=== PATIENT | male | born 1965 | race Caucasian/White ===

== ENCOUNTER 2017-05-08 12:29 | Emergency (ER) | payer OTHER ==
--- NOTE | 2017-05-08 12:36 | EDM.PDOC ---
ED HPI GENERAL MEDICAL PROBLEM - General Chief Complaint: Chest Pain Stated Complaint: CHEST PAIN Time Seen by Provider: 05/08/17 12:35 Source of Information: Reports: Patient History Limitations: Reports: No Limitations - History of Present Illness INITIAL COMMENTS - FREE TEXT/NARRATIVE: 51-year-old male presents the ED with precordial chest pain since 0800 hours this morning. States it started during a very stressful phone call during business hours this morning. States he has never really let up and is a pressure discomfort in his left precordium. Perhaps broke out in a mild sweat for a period of time no nausea or vomiting. Pain didn't travel anywhere else other than the precordial chest. He states that he took a nitroglycerin tablet hour and a half ago which would've been around 11:00 he did seem to help ease up the discomfort substantially. Her pain is down to one or 2/10. Does not feel short of breath this time. Patient does do a lot of driving and sitting with his job. No history of DVT. He reports a myocardial infarction about 3 years ago or will be 3 years at this November and he had one stent placed in sounds like the right coronary artery. He has had a stress test since that time with no problems. He is a nonsmoker. He remains on his baby aspirin in the morning and Plavix once daily. Has not missed any doses of medication. Blood pressure was very high at the office as high as 196 systolic. Diastolic was 120. It is come down nicely to 155/90 at present time after the nitroglycerin tab. He did not get a headache from the nitroglycerin. Onset: Sudden Onset Date: 05/08/17 Onset Time: 08:00 Duration: Hour(s):, Constant Location: Reports: Chest Quality: Reports: Ache, Pressure Severity: Moderate (Was up to a 6 or 7 before he took a nitroglycerin tablet now down to one or 2.) Improves with: Reports: Medication (Nitro-Tab seemed to help a good deal.) Worsens with: Reports: None Context: Reports: Other (Came on at rest after an extremely stressful business- related phone call.). Denies: Activity, Exercise, Lifting, Sick Contact, Trauma Associated Symptoms: Reports: Chest Pain. Denies: Confusion, Cough, cough w sputum, Diaphoresis, Fever/Chills, Headaches, Loss of Appetite, Malaise, Nausea/ Vomiting, Rash, Seizure, Shortness of Breath, Syncope, Weakness, Other Treatments HEAD OF MAINTENANCE: Reports: Other (see below) (Took one nitroglycerin 0.4 mg sublingually 11:00 this morning.) Chest Pain Score (Numeric/FACES): 7 - Related Data Allergies Allergy/AdvReac Type Severity Reaction Status Date / Time No Known Allergies Allergy Verified 05/08/17 12:34 Home Meds: Home Meds Aspirin [Low Dose Aspirin EC] 81 mg PO DAILY 11/11/14 [History] Clopidogrel [Plavix] 75 mg PO DAILY 11/11/14 [History] Lisinopril 10 mg PO DAILY 11/11/14 [History] Nitroglycerin [Nitrostat] 0.4 mg SL ASDIRECTED PRN 11/11/14 [History] Pantoprazole Sodium [Protonix] 20 mg PO DAILY PRN 11/11/14 [History] atorvaSTATin [Lipitor] 80 mg PO BEDTIME 06/20/15 [History] Past Medical History Cardiovascular History: Reports: High Cholesterol, Hypertension, [place], Stents ( One stent presumably in the right coronary artery.) Gastrointestinal History: Reports: GERD Other Neuro History: Bulgeing disc. - Past Surgical History Other Neurological Surgeries/Procedures: SPINAL SURGERY-FUSION Other Musculoskeletal Surgeries/Procedures:: Bulging disc lumbar-2007 Social & Family History - Tobacco Use Smoking Status *Q: Former Smoker Second Hand Smoke Exposure: No - Alcohol Use Days Per Week of Alcohol Use: 0 - Recreational Drug Use Recreational Drug Use: No - Living Situation & Occupation Living situation: Reports: Occupation: Employed (Self-employed) ED ROS GENERAL - Review of Systems Review Of Systems: See Below Constitutional: Reports: No Symptoms HEENT: Reports: No Symptoms Respiratory: Reports: No Symptoms Cardiovascular: Reports: Chest Pain, Blood Pressure Problem (See history present illness). Denies: Claudication ( chronic hypertension usually controlled on current medications), Dyspnea on Exertion, Edema, Lightheadedness , Orthopnea, Palpitations Endocrine: Reports: No Symptoms GI/Abdominal: Reports: No Symptoms, Other (GERD usually well-controlled with current medications.) : Reports: No Symptoms Musculoskeletal: Reports: No Symptoms Skin: Reports: No Symptoms Neurological: Reports: No Symptoms Psychiatric: Reports: No Symptoms Hematologic/Lymphatic: Reports: No Symptoms Immunologic: Reports: No Symptoms ED EXAM, GENERAL - Physical Exam Exam: See Below Exam Limited By: No Limitations General Appearance: Alert, WD/WN, Anxious, Mild Distress Eye Exam: Bilateral Eye: Normal Inspection Head: Atraumatic, Normocephalic Neck: Normal Inspection, Supple, Non-Tender, Full Range of Motion. No: Carotid Bruit, Lymphadenopathy (L), Lymphadenopathy (R) Respiratory/Chest: No Respiratory Distress, Lungs Clear, Normal Breath Sounds, No Accessory Muscle Use, Chest Non-Tender Cardiovascular: Normal Peripheral Pulses, Regular Rate, Rhythm, No Edema, No Gallop, No Murmur, No Rub GI/Abdominal: Normal Bowel Sounds, Soft, Non-Tender, No Organomegaly, Other ( Abdominal girth limits ability to palpate solid organs.) Extremities: Normal Inspection, Normal Range of Motion, Non-Tender, No Pedal Edema Neurological: Alert, Oriented, CN II-XII Intact, Normal Cognition, Normal Gait Psychiatric: Normal Affect, Normal Mood Skin Exam: Warm, Dry, Intact, Normal Color, No Rash EKG INTERPRETATION EKG Date: 05/08/17 Time: 12:35 Rhythm: other (Sinus bradycardia.) Rate (beats/min): 55 Jay Em: normal P-wave: present QRS: other (Decreased voltage in the precordial leads. He does have a thick chest. There is a well-defined Q-wave in lead 3.) ST-T: normal QT: prolonged Course - Vital Signs Last Recorded V/S: Last Vital Signs Temp 36.0 C 05/08/17 12:34 Pulse 55 L 05/08/17 14:19 Resp 18 05/08/17 14:19 BP 115/80 05/08/17 14:19 Pulse Ox 97 05/08/17 14:19 - Orders/Labs/Meds Orders: Active Orders 24 hr Category Date Time Status EKG Documentation Completion [RC] STAT Care 05/08/17 12:42 Active Chest 1V Frontal [CR] Stat Exams 05/08/17 12:42 Taken Labs: Laboratory Tests 05/08/17 05/08/17 05/08/17 Range/Units 12:45 12:45 12:45 WBC 5.37 (4.23-9.07) K/mm3 RBC 5.27 (4.63-6.08) M/mm3 Hgb 16.1 (13.7-17.5) gm/L Hct 45.9 (40.1-51.0) % MCV 87.1 (79.0-92.2) fl MCH 30.6 (25.7-32.2) pg MCHC 35.1 (32.2-35.5) g/dl RDW Std Deviation 40.1 (35.1-43.9) fL Plt Count 167 (163-337) K/mm3 MPV 10.1 (9.4-12.3) fl Neutrophils % (Manual) 52 (40-60) % Band Neutrophils % 0 (0-10) % Lymphocytes % (Manual) 40 (20-40) % Atypical Lymphs % 0 % Monocytes % (Manual) 6 (2-10) % Eosinophils % (Manual) 1 (0.8-7.0) % Basophils % (Manual) 1 (0.2-1.2) Platelet Estimate Adequate RBC Morph Comment Normal PT 10.8 (8.0-13.0) SECONDS INR 0.99 D-Dimer, Quantitative (0.19-0.59) mg/L Sodium 139 (136-145) mEq/L Potassium 4.1 (3.5-5.1) mEq/L Chloride 104 (98-107) mEq/L Carbon Dioxide 26 (21-32) mEq/L Anion Gap 13.1 (5-15) BUN 18 (7-18) mg/dL Creatinine 1.0 (0.7-1.3) mg/dL Est Cr Clr Drug Dosing 83.60 mL/min Estimated GFR (MDRD) > 60 (>60) mL/min BUN/Creatinine Ratio 18.0 (14-18) Glucose 95 (74-106) mg/dL Calcium 8.7 (8.5-10.1) mg/dL Magnesium 1.9 (1.8-2.4) mg/dl Total Bilirubin 1.0 (0.2-1.0) mg/dL AST 25 (15-37) U/L ALT 46 (16-63) U/L Alkaline Phosphatase 29 L (46-116) U/L CK-MB (CK-2) 1.3 (0-3.6) ng/ml Troponin I < 0.017 (0.00-0.056) ng/mL C-Reactive Protein < 0.2 (<1.0) mg/dL B-Natriuretic Peptide (0-100) pg/mL Total Protein 8.2 (6.4-8.2) g/dl Albumin 4.5 (3.4-5.0) g/dl Globulin 3.7 gm/dL Albumin/Globulin Ratio 1.2 (1-2) 05/08/17 05/08/17 Range/Units 12:45 12:45 WBC (4.23-9.07) K/mm3 RBC (4.63-6.08) M/mm3 Hgb (13.7-17.5) gm/L Hct (40.1-51.0) % MCV (79.0-92.2) fl MCH (25.7-32.2) pg MCHC (32.2-35.5) g/dl RDW Std Deviation (35.1-43.9) fL Plt Count (163-337) K/mm3 MPV (9.4-12.3) fl Neutrophils % (Manual) (40-60) % Band Neutrophils % (0-10) % Lymphocytes % (Manual) (20-40) % Atypical Lymphs % % Monocytes % (Manual) (2-10) % Eosinophils % (Manual) (0.8-7.0) % Basophils % (Manual) (0.2-1.2) Platelet Estimate RBC Morph Comment PT (8.0-13.0) SECONDS INR D-Dimer, Quantitative 0.22 (0.19-0.59) mg/L Sodium (136-145) mEq/L Potassium (3.5-5.1) mEq/L Chloride (98-107) mEq/L Carbon Dioxide (21-32) mEq/L Anion Gap (5-15) BUN (7-18) mg/dL Creatinine (0.7-1.3) mg/dL Est Cr Clr Drug Dosing mL/min Estimated GFR (MDRD) (>60) mL/min BUN/Creatinine Ratio (14-18) Glucose (74-106) mg/dL Calcium (8.5-10.1) mg/dL Magnesium (1.8-2.4) mg/dl Total Bilirubin (0.2-1.0) mg/dL AST (15-37) U/L ALT (16-63) U/L Alkaline Phosphatase (46-116) U/L CK-MB (CK-2) (0-3.6) ng/ml Troponin I (0.00-0.056) ng/mL C-Reactive Protein (<1.0) mg/dL B-Natriuretic Peptide < 15 (0-100) pg/mL Total Protein (6.4-8.2) g/dl Albumin (3.4-5.0) g/dl Globulin gm/dL Albumin/Globulin Ratio (1-2) Meds: Medications Discontinued Medications Generic Name Dose Route Start Last Admin Trade Name Rosemary PRN Reason Stop Dose Admin Aspirin 324 mg 05/08/17 12:42 05/08/17 13:04 Aspirin PO 05/08/17 12:43 324 mg ONETIME ONE Administration Nitroglycerin/Dextrose 25 mg in 250 mls @ 6 mls/hr 05/08/17 12:45 05/08/17 13 :03 Nitroglycerin 25 Mg/D5w 250 Ml IV 10 mcg/min ASDIRECTED ARTIE 6 mls/hr 10 MCG/MIN Administration Sodium Chloride 1,000 mls @ 100 mls/hr 05/08/17 12:45 05/08/17 13:03 Normal Saline IV 100 mls/hr ASDIRECTED ARTIE Administration - Radiology Interpretation Free Text/Narrative:: 51-year-old male presents to the ED with precordial chest pain that started about 0800 hours this morning. Came on during a very stressful business phone call. Patient has a history of coronary disease having had stent placement about 2 and half to 3 years ago for it sounds like right coronary occlusion in the wall OH. He continues to have left precordial chest pain improved after taking a sublingual nitroglycerin tablet at 11:00 this morning. He perhaps had mild diaphoresis at the initial onset of pain. No nausea vomiting. ECG at this time shows sinus bradycardia 55 per minute without any obvious ST segment changes to suggest ischemia. There is a diffuse early repolarization pattern. Plan he'll be treated as if he has an OH until enzymes come back. He will be given 324 mg of aspirin chewed. He does take a baby aspirin and is on Plavix daily. He reports blood pressure was through the roof initially but did improve with time and after the nitroglycerin tablet. Blood pressure at one time was 186 / 119. It is otherwise examination is normal. Plan one view chest x-ray routine labs to include cardiac markers BNP and magnesium levels. Posterior a nitro drip at 10 mcg per minute. - Re-Assessments/Exams Free Text/Narrative Re-Assessment/Exam: 05/08/17 14:04 blood pressure is down to 115/80. Heart rate is 57 in sinus. He still has a little bit of precordial chest discomfort once again on examination not able to make it worse by palpation of the chest wall. A nitro drip for the last our incisional worse no better. Labs reveal a normal white count at 5.37 with 52% neutrophils no bands hemoglobin 16.1. Hematocrit of 45.9. Coags were normal d-dimer was normal at 0.2 to cardiac markers showed a troponin of less than 0.017 CK-MB fraction was 1.3. He therefore will get him up walking and also has to make sure that he does not get any worsening of his chest pain it appears that the great deal of stress he was under today precipitated the chest pain but it's unclear why it's still present. He grades it as a 1 out of 10. 05/08/17 14:14 patient walked around the department vigorously 3 elapsed with no worsening of his chest pain. He will therefore be discharged to home with no change in medications made. He will follow-up of course continues to have left precordial chest discomfort. Departure - Departure Time of Disposition: 14:20 Disposition: Home, Self-Care 01 Condition: fair Clinical Impression: Chest pain, non-cardiac Instructions: Chest Wall Pain Referrals: Brandy Hawkins [facility] MACHINE CATCHER [Primary Care Provider] - Forms: ED Department Discharge Additional Instructions: Evaluation in the emergency room today in regards to development of left precordial chest pain about 8:00 this morning after a stressful conversation involving business. The chest pain however continued and would not let up. It did seem to improve after taking nitroglycerin tablet at 11:00 today. Pressure was notably very high for a period of time but has now settled as well. ECG done was within normal limits normal limits. Chest x-ray was normal as well. Lab tests also proved to be completely normal with notes of any blood clot in the lung or elevation of any other cardiac markers that would suggest heart attack problems. Therefore at this time no changes to are to be made her current medication or treatment plan. Continue all activity as before. Coarse return to the ED if you develop further or worsening of the pain in the left anterior chest. - My Orders Last 24 Hours: My Active Orders 05/08/17 12:42 EKG Documentation Completion [RC] STAT Chest 1V Frontal [CR] Stat - Assessment/Plan Last 24 Hours: My Active Orders 05/08/17 12:42 EKG Documentation Completion [RC] STAT Chest 1V Frontal [CR] Stat
[2017-05-08] MEDS ORDERED: Aspirin 81 MG Tab.Chew PO ONE (12:42)
[2017-05-08] MEDS ORDERED: Sodium Chloride 0.9% 1,000 ML IV SCH (12:45)
[2017-05-08] MEDS ORDERED: Nitroglycerin/D5W 25 MG/250 ML BOTTLE IV SCH (12:45)
[2017-05-08 14:21] VITALS: BP 115/80
--- NOTE | 2017-05-08 15:45 | CR ---
Chest: Frontal view of the chest was obtained. Comparison: Previous chest x-ray of 06/20/15. Heart size appears within normal limits. Tortuous thoracic aorta is seen. Minimal density within the left base compatible with slight scarring is seen. Lungs otherwise are clear. Bony structures are grossly intact. Surgical clips seen from prior cholecystectomy. Impression: 1. Incidental findings as noted above. Nothing acute seen on frontal chest x-ray. Diagnostic code #2
== END 2017-05-08 14:21 | disposition home or self-care (01) ==
LOC: JD.ED 12:29
DX: R07.89 Other chest pain (principal); I10 Essential (primary) hypertension; I25.2 Old myocardial infarction; E78.00 Pure hypercholesterolemia, unspecified; K21.9 Gastro-esophageal reflux disease without esophagitis; Z95.5 Presence of coronary angioplasty implant and graft; Z98.1 Arthrodesis status; Z79.82 Long term (current) use of aspirin; Z79.899 Other long term (current) drug therapy; Z87.891 Personal history of nicotine dependence
CPT/HCPCS: 36415; 71010; 80053; 82553; 83735; 83880; 84484; 85025; 85379; 85610; 86140; 93005; 96365; 99285; A9270; J7040; 99284

== ENCOUNTER 2017-11-13 21:47 | Emergency (ER) | payer OTHER ==
[2017-11-13] MEDS ORDERED: Nitroglycerin 0.4 MG Tab.SL SL PRN (22:06)
[2017-11-13] MEDS ORDERED: Aspirin 81 MG Tab.Chew PO ONE (22:06)
[2017-11-13] MEDS ORDERED: Sodium Chloride 0.9% 10 ML Syringe FLUSH PRN (22:06)
[2017-11-13] MEDS ORDERED: Alum Hydrox/Mag Hydrox/Simeth 30 ML, Lidocaine 2% 15 ML PO ONE ×2 (22:09)
[2017-11-13] MEDS ORDERED: Morphine 2 MG/ML Syringe IVPUSH ONE (22:09)
[2017-11-13] MEDS ORDERED: Sodium Chloride 0.9% 1,000 ML IV SCH (22:15)
--- NOTE | 2017-11-13 22:16 | EDM.PDOC ---
<Eliazar Gr O - Last Filed: 11/13/17 23:15> ED HPI GENERAL MEDICAL PROBLEM - General Chief Complaint: Chest Pain Stated Complaint: CHEST PAIN Time Seen by Provider: 11/13/17 21:51 Source of Information: Reports: Patient History Limitations: Reports: No Limitations - History of Present Illness INITIAL COMMENTS - FREE TEXT/NARRATIVE: Patient is a 52-year-old male who presents ED complaining of substernal chest discomfort that started earlier today at approximately 1300 hrs. while sitting in this office working. 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 Patient works in the oil field doing dirt work. States the pain came on abruptly substernal with mild diaphoresis present. States he did not take a nitroglycerin since the nitro bottle opened up in his pocket yesterday breaking all the tabs up. Upon arrival to the ED pain is localized with no radiation. Rated a 4 out of 10. He did take his baby aspirin earlier this morning. States he does have a history of stent placement approximately 3 years ago to the right marginal artery. Another vessel had angioplasty with no stent placement. He was just recently evaluated by his clipper counters September 2017 and taken off the Plavix that he's been taking since stent placement. Otherwise denies any additional medication and or dosage changes. With admission he denies any shortness of breath, dizziness, worsening back pain, nausea/vomiting, or any additional complaints. States he has gained approximately 15 pounds over last 3 months. Denies any increased edema to his lower extremities. Denies any PND or orthopnea. Additional past medical history: hypertension, hypercholesterolemia, irritable bowel syndrome, hiatal hernia with GERD. Current medications: nitro tab sl, lisinopril atorvastatin, pantoprazole, and ASA. SH: stent + angioplasty, cholecysectomy, and colonoscopy. Patient does not smoke or utilize any alcohol or recreational drugs. Care providers Jose David Hawkins. Chest Pain Score (Numeric/FACES): 4 - Related Data Allergies Allergy/AdvReac Type Severity Reaction Status Date / Time No Known Allergies Allergy Verified 11/13/17 21:50 Home Meds: Home Meds Aspirin [Low Dose Aspirin EC] 81 mg PO BID 11/11/14 [History] Lisinopril 10 mg PO DAILY 11/11/14 [History] Nitroglycerin [Nitrostat] 0.4 mg SL ASDIRECTED PRN 11/11/14 [History] Pantoprazole Sodium [Protonix] 40 mg PO DAILY PRN 11/11/14 [History] atorvaSTATin [Lipitor] 80 mg PO BEDTIME 06/20/15 [History] Past Medical History Cardiovascular History: Reports: High Cholesterol, Hypertension, [place], Stents Gastrointestinal History: Reports: GERD Other Neuro History: Bulgeing disc. - Past Surgical History Other Neurological Surgeries/Procedures: SPINAL SURGERY-FUSION Other Musculoskeletal Surgeries/Procedures:: Bulging disc lumbar-2007 Social & Family History - Tobacco Use Smoking Status *Q: Never Smoker Second Hand Smoke Exposure: No - Caffeine Use Caffeine Use: Reports: Coffee - Alcohol Use Days Per Week of Alcohol Use: 0 - Recreational Drug Use Recreational Drug Use: No - Living Situation & Occupation Living situation: Reports: Occupation: Employed (Self-employed) ED ROS GENERAL - Review of Systems Review Of Systems: See Below Constitutional: Reports: No Symptoms Respiratory: Denies: Shortness of Breath, Wheezing, Pleuritic Chest Pain, Cough , Sputum Cardiovascular: Reports: Chest Pain. Denies: Dyspnea on Exertion, Edema, Lightheadedness, Palpitations, Syncope GI/Abdominal: Reports: No Symptoms Musculoskeletal: Reports: Back Pain (Chronic) Neurological: Reports: No Symptoms ED EXAM, GENERAL - Physical Exam Exam: See Below Exam Limited By: No Limitations General Appearance: Alert, WD/WN, No Apparent Distress Ears: Hearing Grossly Normal Nose: Normal Inspection Throat/Mouth: Normal Voice, No Airway Compromise Neck: Normal Inspection, Supple Respiratory/Chest: No Respiratory Distress, Lungs Clear, Normal Breath Sounds, No Accessory Muscle Use, Chest Non-Tender Cardiovascular: Normal Peripheral Pulses, Regular Rate, Rhythm, No Murmur Peripheral Pulses: 3+: Radial (L), Radial (R) GI/Abdominal: Normal Bowel Sounds, Soft, Non-Tender, No Organomegaly, No Distention Extremities: Normal Inspection, Normal Range of Motion, Non-Tender, No Pedal Edema, Normal Capillary Refill Neurological: Alert, Oriented, CN II-XII Intact, Normal Cognition, No Motor/ Sensory Deficits Psychiatric: Normal Affect, Normal Mood Skin Exam: Warm, Dry, Intact, Normal Color, No Rash Course - Vital Signs Last Recorded V/S: Last Vital Signs Temp 36.0 C 11/13/17 21:50 Pulse 60 11/13/17 21:50 Resp 18 11/13/17 21:50 BP 130/95 H 11/13/17 22:24 Pulse Ox 97 11/13/17 21:50 - Orders/Labs/Meds Orders: Active Orders 24 hr Category Date Time Status Cardiac Monitoring [RC] . DIRECTED Care 11/13/17 22:06 Active EKG Documentation Completion [RC] ASDIRECTED Care 11/14/17 00:59 Active EKG Documentation Completion [RC] ASDIRECTED Care 11/14/17 00:59 Active Peripheral IV Care [RC] . DIRECTED Care 11/13/17 22:08 Active Nothing per Oral Now Diet [DIET] Diet 11/13/17 Lunch Active Chest 1V Frontal [CR] Stat Exams 11/13/17 22:07 Taken Nitroglycerin [Nitrostat] Med 11/13/17 22:06 Active 0.4 mg SL Q5M PRN Sodium Chloride 0.9% [Normal Saline] 1,000 ml Med 11/13/17 22:15 Active IV ASDIRECTED Sodium Chloride 0.9% [Saline Flush] Med 11/13/17 22:06 Active 10 ml FLUSH ASDIRECTED PRN Peripheral IV Insertion Adult [OM.PC] Stat Oth 11/13/17 22:06 Ordered EKG 12 Lead [EK] Stat Ther 11/14/17 00:58 Ordered EKG 12 Lead [EK] Stat Ther 11/14/17 00:59 Ordered Medication Orders Sodium Chloride (Normal Saline) 1,000 mls @ 125 mls/hr IV ASDIRECTED ARTIE Last Admin: 11/13/17 22:19 Dose: 125 mls/hr Nitroglycerin (Nitrostat) 0.4 mg SL Q5M PRN PRN Reason: Chest Pain Stop: 11/14/17 22:06 Last Admin: 11/13/17 22:24 Dose: 0.4 mg Sodium Chloride (Saline Flush) 10 ml FLUSH ASDIRECTED PRN PRN Reason: Keep Vein Open Last Admin: 11/13/17 22:23 Dose: 10 ml Labs: Laboratory Tests 11/13/17 11/13/17 11/13/17 Range/Units 21:51 21:51 21:51 WBC 6.94 (4.23-9.07) K/mm3 RBC 5.46 (4.63-6.08) M/mm3 Hgb 16.6 (13.7-17.5) gm/L Hct 47.2 (40.1-51.0) % MCV 86.4 (79.0-92.2) fl MCH 30.4 (25.7-32.2) pg MCHC 35.2 (32.2-35.5) g/dl RDW Std Deviation 39.5 (35.1-43.9) fL Plt Count 166 (163-337) K/mm3 MPV 9.9 (9.4-12.3) fl Neut % (Auto) 59.2 (34.0-67.9) % Lymph % (Auto) 28.8 (21.8-53.1) % [place] % (Auto) 10.2 (5.3-12.2) % Eos % (Auto) 1.4 (0.8-7.0) Baso % (Auto) 0.3 (0.1-1.2) % Neut # (Auto) 4.10 (1.78-5.38) K/mm3 Lymph # (Auto) 2.00 (1.32-3.57) K/mm3 [place] # (Auto) 0.71 (0.30-0.82) K/mm3 Eos # (Auto) 0.10 (0.04-0.54) K/mm3 Baso # (Auto) 0.02 (0.01-0.08) K/mm3 PT 10.7 (8.0-13.0) SECONDS INR 0.98 APTT 26 (22-36) SECONDS D-Dimer, Quantitative (0.19-0.59) mg/L Sodium 139 (136-145) mEq/L Potassium 3.9 (3.5-5.1) mEq/L Chloride 103 (98-107) mEq/L Carbon Dioxide 28 (21-32) mEq/L Anion Gap 11.9 (5-15) BUN 22 H (7-18) mg/dL Creatinine 1.0 (0.7-1.3) mg/dL Est Cr Clr Drug Dosing 71.53 mL/min Estimated GFR (MDRD) > 60 (>60) mL/min BUN/Creatinine Ratio 22.0 H (14-18) Glucose 92 (74-106) mg/dL Calcium 9.4 (8.5-10.1) mg/dL Total Bilirubin 0.8 (0.2-1.0) mg/dL AST 30 (15-37) U/L ALT 49 (16-63) U/L Alkaline Phosphatase 54 (46-116) U/L Troponin I < 0.017 (0.00-0.056) ng/mL C-Reactive Protein < 0.2 (<1.0) mg/dL NT-Pro-B Natriuret Pep 11 (0-125) pg/mL Total Protein 8.2 (6.4-8.2) g/dl Albumin 4.6 (3.4-5.0) g/dl Globulin 3.6 gm/dL Albumin/Globulin Ratio 1.3 (1-2) 11/13/17 11/14/17 Range/Units 21:51 01:02 WBC (4.23-9.07) K/mm3 RBC (4.63-6.08) M/mm3 Hgb (13.7-17.5) gm/L Hct (40.1-51.0) % MCV (79.0-92.2) fl MCH (25.7-32.2) pg MCHC (32.2-35.5) g/dl RDW Std Deviation (35.1-43.9) fL Plt Count (163-337) K/mm3 MPV (9.4-12.3) fl Neut % (Auto) (34.0-67.9) % Lymph % (Auto) (21.8-53.1) % [place] % (Auto) (5.3-12.2) % Eos % (Auto) (0.8-7.0) Baso % (Auto) (0.1-1.2) % Neut # (Auto) (1.78-5.38) K/mm3 Lymph # (Auto) (1.32-3.57) K/mm3 [place] # (Auto) (0.30-0.82) K/mm3 Eos # (Auto) (0.04-0.54) K/mm3 Baso # (Auto) (0.01-0.08) K/mm3 PT (8.0-13.0) SECONDS INR APTT (22-36) SECONDS D-Dimer, Quantitative < 0.19 L (0.19-0.59) mg/L Sodium (136-145) mEq/L Potassium (3.5-5.1) mEq/L Chloride (98-107) mEq/L Carbon Dioxide (21-32) mEq/L Anion Gap (5-15) BUN (7-18) mg/dL Creatinine (0.7-1.3) mg/dL Est Cr Clr Drug Dosing mL/min Estimated GFR (MDRD) (>60) mL/min BUN/Creatinine Ratio (14-18) Glucose (74-106) mg/dL Calcium (8.5-10.1) mg/dL Total Bilirubin (0.2-1.0) mg/dL AST (15-37) U/L ALT (16-63) U/L Alkaline Phosphatase (46-116) U/L Troponin I < 0.017 (0.00-0.056) ng/mL C-Reactive Protein (<1.0) mg/dL NT-Pro-B Natriuret Pep (0-125) pg/mL Total Protein (6.4-8.2) g/dl Albumin (3.4-5.0) g/dl Globulin gm/dL Albumin/Globulin Ratio (1-2) Meds: Medications Generic Name Dose Route Start Last Admin Trade Name Freq PRN Reason Stop Dose Admin Sodium Chloride 1,000 mls @ 125 mls/hr 11/13/17 22:15 11/13/17 22:19 Normal Saline IV 125 mls/hr ASDIRECTED ARTIE Administration Nitroglycerin 0.4 mg 11/13/17 22:06 11/13/17 22:24 Nitrostat SL 11/14/17 22:06 0.4 mg Q5M PRN Administration Chest Pain Sodium Chloride 10 ml 11/13/17 22:06 11/13/17 22:23 Saline Flush FLUSH 10 ml ASDIRECTED PRN Administration Keep Vein Open Discontinued Medications Generic Name Dose Route Start Last Admin Trade Name Freq PRN Reason Stop Dose Admin Aspirin 324 mg 11/13/17 22:06 11/13/17 22:20 Aspirin PO 11/13/17 22:07 324 mg ONETIME ONE Administration Al Hydroxide/Mg Hydroxide 30 0 ml 11/13/17 22:09 11/13/17 22:21 ml/ Lidocaine HCl 15 ml PO 11/13/17 22:10 45 ml ONETIME ONE Administration Morphine Sulfate 2 mg 11/13/17 22:09 11/13/17 22:23 Morphine IVPUSH 11/13/17 22:10 2 mg ONETIME ONE Administration - Re-Assessments/Exams Free Text/Narrative Re-Assessment/Exam: IV established with normal saline 125 mL per hour, aspirin 324 mg by mouth, and nitroglycerin 0.4 mg sublingual every 5 minutes when necessary chest pain. Morphine 2mg IVP and GI cocktail. Initial labs and studies include CBC, chem 14, CRP, and coag studies, Ddimer, troponin, proBNP, and chest x-ray one view. EKG was obtained revealing sinus rhythm at a rate of 61 with borderline left axis deviation with no acute ST changes noted. 11/13/17 22:37 After administration of the above medications patients pain is a 2/10, trending downward. 11/13/17 22:[address] Sparkle Saab with no acute findings noted. Final interpretation is pending. Labs reviewed: CBC and chemistry panel are essentially normal. D-dimer less than 0.19. Troponin less than 0.017. CRP 0.2. 1105 reassessment, patient's pain is currently 1 out of 10. Vital signs are stable. I have ordered a second troponin to be obtained 3 hours from previous blood draw. 2nd EKG will be obtained at this time. Departure - Departure Disposition: Home, Self-Care 01 Clinical Impression: Chest pain Qualifiers: Chest pain type: unspecified Qualified Code(s): R07.9 - Chest pain, unspecified Instructions: Nonspecific Chest Pain, [id number] Referrals: Brandy Hawkins, [employer] [Primary Care Provider] - Forms: ED Department Discharge Additional Instructions: 1. Follow up with your primary doctor as soon as possible for further care 2. Return to the ED if you have worsening chest pain, shortness of breath, or any other concerning symptoms <Crystal Saab - Last Filed: 11/14/17 01:53> Course - Re-Assessments/Exams Free Text/Narrative Re-Assessment/Exam: 11/14/17 01:41 Repeat troponin negative. Feeling well, ready to go home. Discussed return precautions. 11/14/17 01:53 Departure - Departure Time of Disposition: 01:41
[2017-11-13 22:26] VITALS: BP 130/95
--- NOTE | 2017-11-15 08:43 | CR ---
Chest: Portable view of the chest was obtained. Comparison: Prior chest x-ray of 05/08/17. Heart size is normal. Tortuous thoracic aorta is seen. Lungs are clear. Bony structures are grossly intact. Impression: 1. Nothing acute is identified on portable chest x-ray. Diagnostic code #1 MTDD
== END 2017-11-14 01:53 | disposition home or self-care (01) ==
LOC: JD.ED 21:47
DX: R07.2 Precordial pain (principal); I10 Essential (primary) hypertension; E78.00 Pure hypercholesterolemia, unspecified; Z79.82 Long term (current) use of aspirin; Z79.899 Other long term (current) drug therapy
CPT/HCPCS: 36415; 71010; 80053; 83880; 84484; 85025; 85379; 85610; 85730; 86140; 93005; 96361; 96374; 99285; A9270; J2270; J7040; J7050; 93010; 99284-25

== ENCOUNTER 2021-11-29 19:52 | Emergency (ER) | payer OTHER ==
[2021-11-29 20:05] VITALS: PULSE 64
[2021-11-29] MEDS ORDERED: Aspirin 81 MG Tab.Chew PO ONE (20:12)
[2021-11-29] MEDS ORDERED: Sodium Chloride 0.9% 10 ML Syringe FLUSH PRN (20:12)
[2021-11-29] MEDS ORDERED: Nitroglycerin 0.4 MG Tab.SL SL ONE (20:29)
--- NOTE | 2021-11-29 20:29 | EDM.PDOC ---
ED HPI GENERAL MEDICAL PROBLEM - General Chief Complaint: Cardiovascular Problem Stated Complaint: HIGH BP Time Seen by Provider: 11/29/21 20:20 - History of Present Illness INITIAL COMMENTS - FREE TEXT/NARRATIVE: 56-year-old male presents the emergency room with elevated blood pressure and some chest discomfort. He is notices blood pressures in the 160s 170s at times. Today's had a little bit of chest discomfort that comes and goes. He has not used nitro for quite some time but did filler picker some today but did not use it. Patient has a history of having stents placed about 5 years ago. He has not followed up with cardi ology in about 3 years. Patient has some abdominal bloating and is not sure if this is associated with his chest discomfort. At present he has no chest discomfort but does have little bit of abdominal bloating. He has not noticed any nausea vomiting diaphoresis or shortness of breath. His abnormal blood pressure readings has noticed have been at early hours in the morning around 4 or 5 AM. Mid-Anterior Chest Pain Score (Numeric/FACES): 5 - Related Data Allergies Allergy/AdvReac Type Severity Reaction Status Date / Time No Known Allergies Allergy Verified 11/29/21 19:58 Home Meds: Home Meds Aspirin [Low Dose Aspirin EC] 81 mg PO BID 11/11/14 [History] Nitroglycerin [Nitrostat] 0.4 mg SL ASDIRECTED PRN 11/11/14 [History] Pantoprazole Sodium [Protonix] 40 mg PO DAILY PRN 11/11/14 [History] atorvaSTATin [Lipitor] 80 mg PO BEDTIME 06/20/15 [History] Lisinopril/Hydrochlorothiazide [Lisinopril-HCTZ 10-12.5 MG] 1 tab PO DAILY 11/29/21 [History] Past Medical History HEENT History: Reports: Glaucoma Cardiovascular History: Reports: High Cholesterol, Hypertension, [place], Stents Gastrointestinal History: Reports: GERD, P[place] Musculoskeletal History: Reports: Fracture Other Neuro History: Bulgeing disc. Psychiatric History: Reports: Depression - Past Surgical History Cardiovascular Surgical History: Reports: Coronary Artery Stent GI Surgical History: Reports: Cholecystectomy Other Neurological Surgeries/Procedures: SPINAL SURGERY--shaved off disc. Other Musculoskeletal Surgeries/Procedures:: Bulging disc lumbar-2007 Social & Family History - Tobacco Use Tobacco Use Status *Q: Never Tobacco User Second Hand Smoke Exposure: No - Caffeine Use Caffeine Use: Reports: Coffee - Recreational Drug Use Recreational Drug Use: No - Living Situation & Occupation Living situation: Reports: Occupation: Employed (Self-employed) ED ROS GENERAL - Review of Systems Review Of Systems: See Below Constitutional: Reports: No Symptoms HEENT: Reports: No Symptoms Respiratory: Reports: No Symptoms Cardiovascular: Reports: Chest Pain, Blood Pressure Problem. Denies: Edema Endocrine: Reports: No Symptoms GI/Abdominal: Reports: No Symptoms : Reports: No Symptoms Musculoskeletal: Reports: No Symptoms Skin: Reports: No Symptoms Neurological: Reports: No Symptoms ED EXAM, GENERAL - Physical Exam Exam: See Below Exam Limited By: No Limitations General Appearance: Alert, No Apparent Distress, Obese Head: Atraumatic, Normocephalic Neck: Normal Inspection, Supple, Non-Tender, Full Range of Motion Respiratory/Chest: No Respiratory Distress, Lungs Clear, Normal Breath Sounds, No Accessory Muscle Use, Chest Non-Tender Cardiovascular: Normal Peripheral Pulses, Regular Rate, Rhythm, No Edema, No Gallop, No JVD, No Murmur, No Rub GI/Abdominal: Normal Bowel Sounds, Soft, Non-Tender Back Exam: Normal Inspection Extremities: Normal Inspection, No Pedal Edema Neurological: Alert, Oriented, Normal Cognition Skin Exam: Warm, Dry, Intact #1 Interpretation EKG Date: 11/29/21 Rhythm: NSR Rate (Beats/Min): 59 [place]: Normal P-Wave: Present QRS: Normal ST-T: Normal QT: Normal Comparison: No Change (Again change from October 15, 2014 or June 20, 2015) EKG Interpretation Comments: Normal EKG Course - Vital Signs Last Recorded V/S: Last Vital Signs Temp 36.7 C 11/29/21 19:55 Pulse 64 11/29/21 19:55 Resp 18 11/29/21 19:55 BP 129/85 11/29/21 20:50 Pulse Ox 100 11/29/21 19:55 - Orders/Labs/Meds Orders: Active Orders 24 hr Category Date Time Status Cardiac Monitoring [RC] . DIRECTED Care 11/29/21 20:14 Active Communication Order [RC] ASDIRECTED Care 11/29/21 20:14 Active Communication Order [RC] ASDIRECTED Care 11/29/21 20:14 Active Oxygen Therapy [RC] ASDIRECTED Care 11/29/21 20:14 Active Peripheral IV Care [RC] . DIRECTED Care 11/29/21 20:14 Active Vaccine to be Administered/Admin Charge [RC] ASDIRECTED Care 11/29/21 20:12 Active Chest 1V Frontal [CR] Stat Exams 11/29/21 20:14 Taken Sodium Chloride 0.9% [Normal Saline] 1,000 ml Med 11/29/21 20:30 Active IV ASDIRECTED Sodium Chloride 0.9% [Saline Flush] Med 11/29/21 20:12 Active 10 ml FLUSH ASDIRECTED PRN Peripheral IV Insertion Adult [OM.PC] Stat Oth 11/29/21 20:14 Ordered EKG 12 Lead [EK] Stat Ther 11/29/21 20:31 Ordered Medication Orders Sodium Chloride (Normal Saline) 1,000 mls @ 50 mls/hr IV ASDIRECTED ARTIE Last Admin: 11/29/21 20:54 Dose: 50 mls/hr Documented by: ZIGGY Sodium Chloride (Sodium Chloride 0.9% 10 Ml Syringe) 10 ml FLUSH ASDIRECTED PRN PRN Reason: Keep Vein Open Labs: Laboratory Tests 11/29/21 11/29/21 11/29/21 Range/Units 20:20 20:20 20:20 WBC 6.07 (4.23-9.07) K/mm3 RBC 5.18 (4.63-6.08) M/mm3 Hgb 15.8 (13.7-17.5) gm/dl Hct 45.3 (40.1-51.0) % MCV 87.5 (79.0-92.2) fl MCH 30.5 (25.7-32.2) pg MCHC 34.9 (32.2-35.5) g/dl RDW Std Deviation 40.9 (35.1-43.9) fL Plt Count 155 L (163-337) K/mm3 MPV 9.7 (9.4-12.3) fl Neut % (Auto) 59.9 (34.0-67.9) % Lymph % (Auto) 27.5 (21.8-53.1) % [place] % (Auto) 10.9 (5.3-12.2) % Eos % (Auto) 1.2 (0.8-7.0) Baso % (Auto) 0.2 (0.1-1.2) % Neut # (Auto) 3.64 (1.78-5.38) K/mm3 Lymph # (Auto) 1.67 (1.32-3.57) K/mm3 [place] # (Auto) 0.66 (0.30-0.82) K/mm3 Eos # (Auto) 0.07 (0.04-0.54) K/mm3 Baso # (Auto) 0.01 (0.01-0.08) K/mm3 PT 11.1 (9.7-12.0) SECONDS INR 1.00 D-Dimer, Quantitative < 0.19 L (0.19-0.50) mg/L Sodium 140 (136-145) mEq/L Potassium 3.6 (3.5-5.1) mEq/L Chloride 104 (98-107) mEq/L Carbon Dioxide 26 (21-32) mEq/L Anion Gap 13.6 (5-15) BUN 16 (7-18) mg/dL Creatinine 0.9 (0.7-1.3) mg/dL Est Cr Clr Drug Dosing 84.67 mL/min Estimated GFR (MDRD) > 60 (>60) mL/min BUN/Creatinine Ratio 17.8 (14-18) Glucose 114 H (70-99) mg/dL Calcium 8.5 (8.5-10.1) mg/dL Magnesium 1.8 (1.8-2.4) mg/dL Total Bilirubin 1.1 H (0.2-1.0) mg/dL AST 26 (15-37) U/L ALT 47 (16-63) U/L Alkaline Phosphatase 53 (46-116) U/L Troponin I < 0.017 (0.00-0.056) ng/mL Total Protein 7.8 (6.4-8.2) g/dl Albumin 4.3 (3.4-5.0) g/dl Globulin 3.5 gm/dL Albumin/Globulin Ratio 1.2 (1-2) 11/29/21 Range/Units 22:25 WBC (4.23-9.07) K/mm3 RBC (4.63-6.08) M/mm3 Hgb (13.7-17.5) gm/dl Hct (40.1-51.0) % MCV (79.0-92.2) fl MCH (25.7-32.2) pg MCHC (32.2-35.5) g/dl RDW Std Deviation (35.1-43.9) fL Plt Count (163-337) K/mm3 MPV (9.4-12.3) fl Neut % (Auto) (34.0-67.9) % Lymph % (Auto) (21.8-53.1) % [place] % (Auto) (5.3-12.2) % Eos % (Auto) (0.8-7.0) Baso % (Auto) (0.1-1.2) % Neut # (Auto) (1.78-5.38) K/mm3 Lymph # (Auto) (1.32-3.57) K/mm3 [place] # (Auto) (0.30-0.82) K/mm3 Eos # (Auto) (0.04-0.54) K/mm3 Baso # (Auto) (0.01-0.08) K/mm3 PT (9.7-12.0) SECONDS INR D-Dimer, Quantitative (0.19-0.50) mg/L Sodium (136-145) mEq/L Potassium (3.5-5.1) mEq/L Chloride (98-107) mEq/L Carbon Dioxide (21-32) mEq/L Anion Gap (5-15) BUN (7-18) mg/dL Creatinine (0.7-1.3) mg/dL Est Cr Clr Drug Dosing mL/min Estimated GFR (MDRD) (>60) mL/min BUN/Creatinine Ratio (14-18) Glucose (70-99) mg/dL Calcium (8.5-10.1) mg/dL Magnesium (1.8-2.4) mg/dL Total Bilirubin (0.2-1.0) mg/dL AST (15-37) U/L ALT (16-63) U/L Alkaline Phosphatase (46-116) U/L Troponin I < 0.017 (0.00-0.056) ng/mL Total Protein (6.4-8.2) g/dl Albumin (3.4-5.0) g/dl Globulin gm/dL Albumin/Globulin Ratio (1-2) Meds: Medications Generic Name Dose Route Start Last Admin Trade Name Freq PRN Reason Stop Dose Admin Sodium Chloride 1,000 mls @ 50 mls/hr 11/29/21 20:30 11/29/21 20:54 Normal Saline IV 50 mls/hr ASDIRECTED ARTIE Administration Sodium Chloride 10 ml 11/29/21 20:12 Sodium Chloride 0.9% 10 Ml Syringe FLUSH ASDIRECTED PRN Keep Vein Open Discontinued Medications Generic Name Dose Route Start Last Admin Trade Name Freq PRN Reason Stop Dose Admin Aspirin 324 mg 11/29/21 20:12 11/29/21 20:28 Aspirin 81 Mg Tab.Chew PO 11/29/21 20:13 324 mg ONETIME ONE Administration Influenza Virus Vaccine 60 mcg 11/29/21 21:30 11/29/21 21:50 Flu Vacc [id number] 36mos Up/Pf 60 Mcg/0.5 Ml Syringe IM 11/29/21 21:31 60 mcg .ONCE ONE Administration Nitroglycerin 0.4 mg 11/29/21 20:29 11/29/21 20:50 Nitroglycerin 0.4 Mg Tab.Sl SL 11/29/21 20:30 0.4 mg ONETIME ONE Administration - Re-Assessments/Exams Free Text/Narrative Re-Assessment/Exam: 11/29/21 23:21 Patient's initial work-up and EKG is nondiagnostic troponin is negative I watched him to a reasonable time checked a second troponin which came back negative. Patient's course and work-up admit discussed with Dr. Wilkins, on-call piper installer at [facility] who agrees with disposition patient be discharged using his sublingual nitro on a as needed basis and the patient will call cardiology office to schedule an appointment this week. Departure - Departure Time of Disposition: 23:22 Disposition: Home, Self-Care 01 Clinical Impression: Chest pain Qualifiers: Chest pain type: unspecified Qualified Code(s): R07.9 - Chest pain, unspecified Referrals: Narinder Saenz MD [Primary Care Provider] - Forms: ED Department Discharge Additional Instructions: Return to the emergency room with any questions problems or worsening symptoms. Call your cardiology office in the morning to schedule a appointment preferably for this week. Use your sublingual nitro as needed. If you need to take 3 doses to help with 1 bout of chest pain you should immediately return to the chest emergency room. Continue your medications that you are taking. You could consider splitting up the lisinopril and hydrochlorothiazide taking the hydrochlorothiazide in the morning and lisinopril at night to help with these reported elevated blood pressures early in the morning. Continue your other medications as before. You may also follow-up with your regular physician as needed. He would be a good to discuss your blood pressure management with. Sepsis Event Note (ED) - Evaluation Sepsis Screening Result: No Definite Risk - Focused Exam Vital Signs: Vital Signs Temp Pulse Resp BP BP Pulse Ox 11/29/21 20:50 129/85 11/29/21 19:55 36.7 C 64 18 153/97 H 100 - My Orders Last 24 Hours: My Active Orders 11/29/21 20:12 Vaccine to be Administered/Admin Charge [RC] ASDIRECTED Sodium Chloride 0.9% [Saline Flush] 10 ml FLUSH ASDIRECTED PRN 11/29/21 20:14 Cardiac Monitoring [RC] . DIRECTED Communication Order [RC] ASDIRECTED Communication Order [RC] ASDIRECTED Oxygen Therapy [RC] ASDIRECTED Peripheral IV Care [RC] . DIRECTED Chest 1V Frontal [CR] Stat Peripheral IV Insertion Adult [OM.PC] Stat 11/29/21 20:30 Sodium Chloride 0.9% [Normal Saline] 1,000 ml IV ASDIRECTED 11/29/21 20:31 EKG 12 Lead [EK] Stat - Assessment/Plan Last 24 Hours: My Active Orders 11/29/21 20:12 Vaccine to be Administered/Admin Charge [RC] ASDIRECTED Sodium Chloride 0.9% [Saline Flush] 10 ml FLUSH ASDIRECTED PRN 11/29/21 20:14 Cardiac Monitoring [RC] . DIRECTED Communication Order [RC] ASDIRECTED Communication Order [RC] ASDIRECTED Oxygen Therapy [RC] ASDIRECTED Peripheral IV Care [RC] . DIRECTED Chest 1V Frontal [CR] Stat Peripheral IV Insertion Adult [OM.PC] Stat 11/29/21 20:30 Sodium Chloride 0.9% [Normal Saline] 1,000 ml IV ASDIRECTED 11/29/21 20:31 EKG 12 Lead [EK] Stat
[2021-11-29] MEDS ORDERED: Sodium Chloride 0.9% 1,000 ML IV SCH (20:30)
[2021-11-29 20:50] VITALS: BP 129/85
[2021-11-29] MEDS ORDERED: FLU Vacc QS2021-22 36MOS UP/PF 60 MCG/0.5 ML Syringe IM ONE (21:30)
--- NOTE | 2021-11-30 10:09 | CR ---
EXAM: XR CHEST 1 VIEW LOCATION: [facility] DATE/TIME: 11/29/2021 8:51 PM INDICATION: Chest pain. COMPARISON: None. FINDINGS: The heart size is normal. There are few bands of scar or atelectasis in the lower lungs. The lungs are otherwise clear. No pneumothorax. IMPRESSION: Mild bilateral atelectasis or scarring. SIGNED BY: Reid Arciniega MD 11/29/2021 10:01 PM A[facility]IL
== END 2021-11-29 23:43 | disposition home or self-care (01) ==
LOC: JD.ED 19:52
DX: R07.89 Other chest pain (principal); E78.00 Pure hypercholesterolemia, unspecified; I10 Essential (primary) hypertension; I25.2 Old myocardial infarction; K21.9 Gastro-esophageal reflux disease without esophagitis; Z79.82 Long term (current) use of aspirin; Z79.899 Other long term (current) drug therapy
CPT/HCPCS: 36415; 71045; 80053; 83735; 84484; 85025; 85379; 85610; 90471; 90686; 93005; 99285; A9270; J7030; G0008

== ENCOUNTER 2022-05-31 11:03 | Day surgery (SDC) | payer OTHER ==
[2022-05-31] MEDS ORDERED: Lidocaine 1% 6 ML ONE (11:06)
[2022-05-31] MEDS ORDERED: Propofol 200 MG/20 ML SDV ONE ×2 (11:06→12:26)
[2022-05-31] MEDS ORDERED: Lactated Ringers 1,000 ML IV ONE (11:24)
[2022-05-31] MEDS ORDERED: Lidocaine 1%/Sod Bicarbonate in NS 8.4% 1 ML Syringe IDERM ONE (11:24)
[2022-05-31] MEDS ORDERED: Sodium Chloride 0.9% 10 ML Syringe FLUSH PRN (11:25)
[2022-05-31 12:39] VITALS: PULSE 60
[2022-05-31 13:11] VITALS: BP 123/83
[2022-05-31] MEDS ORDERED: Sodium Chloride 0.9% 10 ML Syringe FLUSH SCH (21:00)
== END 2022-05-31 13:05 | disposition home or self-care (01) ==
LOC: JD.SDS 11:03
PROVIDERS: ATTEND Surgery
DX: K31.7 Polyp of stomach and duodenum (principal); K21.9 Gastro-esophageal reflux disease without esophagitis; K44.9 Diaphragmatic hernia without obstruction or gangrene; I10 Essential (primary) hypertension; K29.70 Gastritis, unspecified, without bleeding; K22.70 Barrett's esophagus without dysplasia; F41.1 Generalized anxiety disorder; I25.10 Atherosclerotic heart disease of native coronary artery without angina pectoris; E78.00 Pure hypercholesterolemia, unspecified; G47.30 Sleep apnea, unspecified; Z87.11 Personal history of peptic ulcer disease; Z79.02 Long term (current) use of antithrombotics/antiplatelets; Z79.899 Other long term (current) drug therapy; Z79.83 Long term (current) use of bisphosphonates; Z90.49 Acquired absence of other specified parts of digestive tract; Z98.890 Other specified postprocedural states; Z78.9 Other specified health status; Z86.16 Personal history of COVID-19; Z86.74 Personal history of sudden cardiac arrest; Z87.898 Personal history of other specified conditions
CPT/HCPCS: 43239; J2704; J7120

== ENCOUNTER 2024-02-16 14:29 | Emergency (ER) | payer OTHER ==
[2024-02-16] MEDS: Sodium Chloride 0.9% 10 ML Syringe FLUSH PRN (16:07)
[2024-02-16] MEDS: Ketorolac 60 MG/2 ML SDV IM ONE (16:13)
[2024-02-16 16:18] LABS: BASOPHILS PERCENT AUTO 0.4 % (0.0-1.0); EOSINOPHILS ABSOLUTE AUTO 0.1 K/mm3 (0.0-0.4); EOSINOPHILS PERCENT AUTO 0.9 % (0.0-6.0); HEMATOCRIT 42.3 % (42.0-52.0); HEMOGLOBIN 14.8 gm/dl (14.0-18.0); IMMATURE GRAN ABSOLUTE AUTO 0.02 K/mm3 (0.00-0.05); IMMATURE GRAN PERCENT AUTO 0.4 % (0.0-0.4); LYMPHOCYTES ABSOLUTE AUTO 1.2 K/mm3 (1.0-4.8); LYMPHOCYTES PERCENT AUTO 21.6 % (24.0-44.0); MEAN CORPUSCULAR HEMOGLOBIN 30.9 pg (28.0-32.0); MEAN CORPUSCULAR VOLUME 88.3 fl (83.0-99.0); MEAN PLATELET VOLUME 9.4 fl (9.4-12.4); MONOCYTES ABSOLUTE AUTO 0.5 K/mm3 (0.0-0.8); MONOCYTES PERCENT AUTO 9.1 % (0.0-8.0); NEUTROPHILS ABSOLUTE AUTO 3.6 K/mm3 (1.8-7.7); NEUTROPHILS PERCENT AUTO 67.6 % (41.0-71.0); PLATELET COUNT,PLT 150 K/mm3 (150-400); RED BLOOD CELL COUNT 4.79 M/mm3 (4.52-5.90); WHITE BLOOD CELL COUNT,WBC 5.37 K/mm3 (3.9-11.3)
[2024-02-16 17:04] LABS: A/G RATIO 1.1 (1-2); ANION GAP 11.8 (5-15); BILIRUBIN TOTAL 0.5 mg/dL (0.2-1.0); CALCIUM 8.6 mg/dL (8.5-10.1); EST CRCL DRUG DOSING (CG) 74.36 mL/min; POTASSIUM,K 3.8 mEq/L (3.5-5.1); PROTEIN TOTAL,TP 7.5 g/dl (6.4-8.2)
[2024-02-16 17:44] VITALS: BP 130/79; PULSE 61
== END 2024-02-16 17:56 | disposition home or self-care (01) ==
LOC: JD.ED 14:29
DX: R07.89 Other chest pain (principal); M54.50 Low back pain, unspecified; Z79.82 Long term (current) use of aspirin; Z79.899 Other long term (current) drug therapy
CPT/HCPCS: 36415; 71046; 71046-26; 80053; 84484; 85025; 93005; 96372; 99285; J1885; J3490

== ENCOUNTER 2024-12-03 17:48 | Emergency (ER) | payer OTHER ==
[2024-12-03] MEDS ORDERED: Sodium Chloride 0.9% 10 ML Syringe FLUSH PRN (20:11)
[2024-12-03] MEDS: Sodium Chloride 0.9% 1,000 ML IV ONE (20:30)
[2024-12-03] MEDS: Ketorolac 30 MG/ML SDV IVPUSH ONE (20:33)
[2024-12-03] MEDS: Acetaminophen 325 MG Tab PO ONE (20:35)
[2024-12-03 20:41] LABS: BASOPHILS PERCENT AUTO 0.2 % (0.0-1.0); EOSINOPHILS PERCENT AUTO 0.2 % (0.0-6.0); HEMOGLOBIN 16.4 gm/dl (14.0-18.0); IMMATURE GRAN ABSOLUTE AUTO 0.01 K/mm3 (0.00-0.05); IMMATURE GRAN PERCENT AUTO 0.2 % (0.0-0.4); LYMPHOCYTES ABSOLUTE AUTO 0.4 K/mm3 (1.0-4.8); LYMPHOCYTES PERCENT AUTO 6.7 % (24.0-44.0); MEAN CORPUSCULAR HEMOGLOBIN 30.9 pg (28.0-32.0); MEAN CORPUSCULAR HGB CONC 34.9 g/dl (32.0-36.0); MEAN CORPUSCULAR VOLUME 88.7 fl (83.0-99.0); MEAN PLATELET VOLUME 9.6 fl (9.4-12.4); MONOCYTES ABSOLUTE AUTO 0.9 K/mm3 (0.0-0.8); MONOCYTES PERCENT AUTO 15.3 % (0.0-8.0); NEUTROPHILS ABSOLUTE AUTO 4.4 K/mm3 (1.8-7.7); NEUTROPHILS PERCENT AUTO 77.4 % (41.0-71.0); PLATELET COUNT,PLT 126 K/mm3 (150-400); WHITE BLOOD CELL COUNT,WBC 5.67 K/mm3 (3.9-11.3)
[2024-12-03 21:20] LABS: LACTIC ACID 1.2 mmol/L (0.4-2.0)
[2024-12-03 21:39] LABS: A/G RATIO 1.1 (1-2); ALANINE AMINOTRANSFERASE,ALT 36 U/L (16-63); ALBUMIN 4.2 g/dl (3.4-5.0); ALKALINE PHOSPHATASE 56 U/L (46-116); ANION GAP 16.3 (5-15); ASPARTATE AMNIOTRANSFERASE,AST 22 U/L (15-37); BILIRUBIN TOTAL 0.9 mg/dL (0.2-1.0); BLOOD UREA NITROGEN,BUN 17 mg/dL (7-18); BUN/CREATININE RATIO 15.5 (14-18); CARBON DIOXIDE,CO2 27 mEq/L (21-32); CHLORIDE,CL 102 mEq/L (98-107); CREATININE 1.1 mg/dL (0.7-1.3); EST CRCL DRUG DOSING (CG) 66.77 mL/min; ESTIMATED GFR 77 mL/min (>60); GLUCOSE RANDOM 114 mg/dL (70-99); LIPASE 28 U/L (16-77); POTASSIUM,K 4.3 mEq/L (3.5-5.1); PROTEIN TOTAL,TP 8.1 g/dl (6.4-8.2); SODIUM,NA 141 mEq/L (136-145)
[2024-12-03 21:47] LABS: TROPONIN I HIGH SENSITIVITY < 4 pg/mL (<=76)
[2024-12-04 00:21] VITALS: BP 120/80; PULSE 67
== END 2024-12-04 00:22 | disposition home or self-care (01) ==
LOC: JD.ED 17:48
DX: B34.9 Viral infection, unspecified (principal); I10 Essential (primary) hypertension; I25.2 Old myocardial infarction; K21.9 Gastro-esophageal reflux disease without esophagitis; Z95.5 Presence of coronary angioplasty implant and graft; Z90.49 Acquired absence of other specified parts of digestive tract; Z79.82 Long term (current) use of aspirin; Z79.899 Other long term (current) drug therapy
CPT/HCPCS: 36415; 71046; 80053; 83605; 83690; 84484; 85025; 87040; 87428; 96361; 96374; 99284; A9270; J1885; J7030